=== PATIENT | female | born 1930 | race Caucasian/White ===

== ENCOUNTER 2018-04-18 11:12 | Inpatient (IN) ==
[2018-04-18] MEDS ORDERED: ONDANSETRON 4 MG/2 ML VIAL IV STA (11:54)
[2018-04-18] MEDS ORDERED: SODIUM CHLORIDE 0.9% 500 ML IV STA (11:54)
[2018-04-18 12:02] LABS: Basophils % 0.3 % (0.0-0.8); Eosinophils % 0.1 % (0.00-10.9); Hematocrit 40.8 VOL% (35.7-47.0); Hemoglobin 14.2 GM/DL (12.0-16.0); Immature Granulocytes % 0.4 %; Lymphocytes % 6.4 % (21.3-54.2); Mean Corpuscular HGB Conc 34.8 GM/DL (32-36); Mean Corpuscular Hemoglobin 31 PG (27-34); Mean Corpuscular Volume 88.1 FL (87-102); Mean Platelet Volume 12.7 FL (9.6-12.0); Monocytes % 6.4 % (1.7-12.7); Neutrophils % 86.4 % (38.7-73.9); Platelet Count 235 T/CUMM (130-400); Red Blood Count 4.63 MC/CUMM (3.8-5.5); Red Cell Distribution Width 13.7 % (9.3-17.3); White Blood Count 19.9 T/CUMM (4-12)
[2018-04-18 12:03] LABS: Basophils # 0.1 10*3/uL (0.0-0.2); Immature Granulocytes Absolute 0.08 #; Lymphocytes # 1.3 10*3/uL (1.4-4.0); Monocytes # 1.3 10*3/uL (0.11-0.8); Neutrophils # 17.2 10*3/uL (1.4-7.4)
[2018-04-18 12:24] LABS: Albumin 3.6 G/DL (3.4-5.0); Bilirubin,Total 0.6 MG/DL (0.2-1.0); Total Protein 7.3 G/DL (6.4-8.3)
[2018-04-18 12:25] LABS: Osmolality,Calculated 294.1 MOS/KG (273-304); Potassium 3.1 MMOL/L (3.5-5.1)
[2018-04-18 12:27] LABS: Calcium 5.5 MG/DL (8.5-10.1)
[2018-04-18 12:28] LABS: Lactic Acid 2.6 MMOL/L (0.4-2.0)
[2018-04-18] MEDS ORDERED: CALCIUM GLUCONATE 1,000 MG in SODIUM CHLORIDE 0.9% 100 ML IV ONE (13:28)
[2018-04-18 13:43] LABS: Apearance,Urine Slightly Hazy (Clear); Bacteria,Urine Occasional /HPF (Few); Bilirubin,Urine Negative (Negative); Blood, Urine Negative (Negative); Glucose,Urine (UA) Negative (Negative); Ketones,Urine 5 mg/dL (Negative); Mucus,Urine Occasional /LPF (Occasional); Nitrite,Urine Negative (Negative); Protein,Urine Negative; Urine Color Yellow (Yellow); Urine Urobilinogen < 2.0 EU/DL (0.2-1.0); WBC,Urine 1 /HPF (0-6)
[2018-04-18] MEDS ORDERED: SODIUM CHLORIDE 0.9% 1,000 ML IV ONE (13:43)
[2018-04-18] MEDS ORDERED: POTASSIUM CHLORIDE 20 MEQ TABLET PO STA (13:43)
[2018-04-18] MEDS ORDERED: ONDANSETRON 4 MG/2 ML VIAL IV PRN (13:58)
[2018-04-18] MEDS ORDERED: ACETAMINOPHEN 325 MG TABLET PO PRN (13:58)
[2018-04-18] MEDS ORDERED: LEVOFLOXACIN INJ 500 MG in PREMIX 1 EACH IV STA (14:00)
[2018-04-18] MEDS ORDERED: CALCIUM GLUCONATE 1,000 MG/10 ML VIAL IV ONE (14:01)
[2018-04-18] MEDS ORDERED: INFLUENZA VIRUS VACCINE 0.5 ML SYRINGE IM ONE (16:08)
[2018-04-18] MEDS ORDERED: FLUVASTATIN SODIUM 80 MG PO SCH (21:00)
[2018-04-18] MEDS: DOCUSATE SODIUM 100 MG CAPSULE PO SCH (21:20)
[2018-04-18] MEDS: CARBIDOPA/LEVODOPA 25-100 MG TABLET PO SCH (21:20)
[2018-04-19 06:18] LABS: Basophils % 0.4 % (0.0-0.8); Eosinophils # 0.1 10*3/uL (0.0-0.87); Eosinophils % 0.8 % (0.00-10.9); Hematocrit 32.4 VOL% (35.7-47.0); Hemoglobin 11.2 GM/DL (12.0-16.0); Immature Granulocytes % 0.5 %; Immature Granulocytes Absolute 0.06 #; Lymphocytes # 1.1 10*3/uL (1.4-4.0); Lymphocytes % 9.8 % (21.3-54.2); Mean Corpuscular HGB Conc 34.6 GM/DL (32-36); Mean Corpuscular Hemoglobin 31 PG (27-34); Mean Corpuscular Volume 89.3 FL (87-102); Mean Platelet Volume 13.4 FL (9.6-12.0); Monocytes # 0.7 10*3/uL (0.11-0.8); Monocytes % 6.1 % (1.7-12.7); Neutrophils % 82.4 % (38.7-73.9); Platelet Count 146 T/CUMM (130-400); Red Blood Count 3.63 MC/CUMM (3.8-5.5); Red Cell Distribution Width 13.9 % (9.3-17.3)
[2018-04-19 06:53] LABS: Alanine Aminotransferase 9 U/L (13-56); Albumin 2.6 G/DL (3.4-5.0); Alkaline Phosphatase 84 U/L (45-117); Aspartate Amino Transferase 42 U/L (0-37); Blood Urea Nitrogen 24 MG/DL (7-18); Free T4 (Free Thyroxine) 1.21 NG/DL (0.76-1.46); Glucose 93 MG/DL (74-106); Osmolality,Calculated 291.7 MOS/KG (273-304); Potassium 3.2 MMOL/L (3.5-5.1); Sodium 145 MMOL/L (136-145); Total Protein 5.5 G/DL (6.4-8.3)
[2018-04-19 06:59] LABS: Calcium < 5.0 MG/DL (8.5-10.1)
[2018-04-19] MEDS ORDERED: CALCIUM CHLORIDE 1,000 MG/10 ML SYRINGE IV ONE (07:47)
[2018-04-19] MEDS ORDERED: MAGNESIUM SULF RIDER 2 GM in PREMIX 1 EACH IV ONE (08:30)
[2018-04-19] MEDS ORDERED: CALCIUM GLUCONATE 1,000 MG in SODIUM CHLORIDE 0.9% 100 ML IV ONE (09:00)
[2018-04-19] MEDS: METOPROLOL SUCCINATE XL 50 MG TABLET PO SCH (09:30)
[2018-04-19] MEDS: CALCIUM (CARBONATE)/VITAMIN D 600 MG-400 UNIT TABLET PO SCH ×2 (09:30→21:01)
[2018-04-19] MEDS: DEXT 5% NACL 0.45% KCL 20 MEQ 20 MEQ/1,000 ML BAG IV SCH ×2 (09:31→21:03)
[2018-04-19] MEDS: MULTIVITAMIN (CENTRUM) TABLET PO SCH (09:31)
[2018-04-19] MEDS: PANTOPRAZOLE 40 MG TABLET PO SCH (09:31)
[2018-04-19] MEDS: DOCUSATE SODIUM 100 MG CAPSULE PO SCH ×2 (09:31→21:01)
[2018-04-19] MEDS: MAGNESIUM OXIDE 400 MG TABLET PO SCH (09:31)
[2018-04-19] MEDS ORDERED: FLUVASTATIN SODIUM 80 MG PO SCH (21:00)
[2018-04-19] MEDS ORDERED: FLUVASTATIN 20 MG PO SCH (21:00)
[2018-04-19] MEDS: CARBIDOPA/LEVODOPA 25-100 MG TABLET PO SCH (21:01)
[2018-04-20 05:25] LABS: Basophils % 0.4 % (0.0-0.8); Eosinophils # 0.2 10*3/uL (0.0-0.87); Eosinophils % 1.8 % (0.00-10.9); Hematocrit 36.3 VOL% (35.7-47.0); Hemoglobin 12.7 GM/DL (12.0-16.0); Immature Granulocytes % 0.8 %; Immature Granulocytes Absolute 0.09 #; Lymphocytes % 9.5 % (21.3-54.2); Mean Corpuscular Hemoglobin 31 PG (27-34); Mean Corpuscular Volume 87.1 FL (87-102); Mean Platelet Volume 13.1 FL (9.6-12.0); Monocytes # 0.7 10*3/uL (0.11-0.8); Monocytes % 6.9 % (1.7-12.7); Neutrophils # 8.6 10*3/uL (1.4-7.4); Neutrophils % 80.6 % (38.7-73.9); Platelet Count 185 T/CUMM (130-400); Red Blood Count 4.17 MC/CUMM (3.8-5.5); Red Cell Distribution Width 13.8 % (9.3-17.3); White Blood Count 10.6 T/CUMM (4-12)
[2018-04-20 05:41] LABS: Osmolality,Calculated 285.1 MOS/KG (273-304); Potassium 3.2 MMOL/L (3.5-5.1); Total Protein 6.2 G/DL (6.4-8.3)
[2018-04-20] MEDS ORDERED: MAGNESIUM SULF RIDER 2 GM in PREMIX 1 EACH IV ONE (07:35)
[2018-04-20] MEDS: DEXT 5% NACL 0.45% KCL 20 MEQ 20 MEQ/1,000 ML BAG IV SCH ×3 (08:55→20:15)
[2018-04-20] MEDS: PANTOPRAZOLE 40 MG TABLET PO SCH (08:55)
[2018-04-20] MEDS: MULTIVITAMIN (CENTRUM) TABLET PO SCH (08:55)
[2018-04-20] MEDS: MAGNESIUM OXIDE 400 MG TABLET PO SCH (08:55)
[2018-04-20] MEDS: CALCIUM (CARBONATE)/VITAMIN D 600 MG-400 UNIT TABLET PO SCH ×2 (08:56→20:46)
[2018-04-20] MEDS: DOCUSATE SODIUM 100 MG CAPSULE PO SCH ×2 (08:56→20:47)
[2018-04-20] MEDS: METOPROLOL SUCCINATE XL 50 MG TABLET PO SCH (08:56)
[2018-04-20] MEDS: QUEtiapine 25 MG TABLET PO SCH ×2 (08:58→20:47)
[2018-04-20] MEDS ORDERED: CALCIUM GLUCONATE 1,000 MG in SODIUM CHLORIDE 0.9% 100 ML IV ONE (09:00)
[2018-04-20] MEDS ORDERED: clonazePAM 0.5 MG TABLET PO PRN (13:18)
[2018-04-20] MEDS: CARBIDOPA/LEVODOPA 25-100 MG TABLET PO SCH (20:47)
[2018-04-21 05:11] LABS: Basophils % 0.5 % (0.0-0.8); Eosinophils # 0.2 10*3/uL (0.0-0.87); Eosinophils % 2.9 % (0.00-10.9); Hemoglobin 11.7 GM/DL (12.0-16.0); Immature Granulocytes % 0.8 %; Immature Granulocytes Absolute 0.06 #; Lymphocytes # 0.7 10*3/uL (1.4-4.0); Lymphocytes % 8.9 % (21.3-54.2); Mean Corpuscular HGB Conc 35.5 GM/DL (32-36); Mean Corpuscular Hemoglobin 31 PG (27-34); Mean Platelet Volume 12.3 FL (9.6-12.0); Monocytes # 0.5 10*3/uL (0.11-0.8); Monocytes % 6.5 % (1.7-12.7); Neutrophils # 6.1 10*3/uL (1.4-7.4); Neutrophils % 80.4 % (38.7-73.9); Platelet Count 171 T/CUMM (130-400); Red Blood Count 3.75 MC/CUMM (3.8-5.5); Red Cell Distribution Width 14.2 % (9.3-17.3); White Blood Count 7.5 T/CUMM (4-12)
[2018-04-21] MEDS: DEXT 5% NACL 0.45% KCL 20 MEQ 20 MEQ/1,000 ML BAG IV SCH (05:11)
[2018-04-21] MEDS ORDERED: MAGNESIUM SULF RIDER 2 GM in PREMIX 1 EACH IV ONE (09:38)
[2018-04-21] MEDS: DOCUSATE SODIUM 100 MG CAPSULE PO SCH (10:31)
[2018-04-21] MEDS: CALCIUM (CARBONATE)/VITAMIN D 600 MG-400 UNIT TABLET PO SCH (10:31)
[2018-04-21] MEDS: METOPROLOL SUCCINATE XL 50 MG TABLET PO SCH (10:31)
[2018-04-21] MEDS: MAGNESIUM OXIDE 400 MG TABLET PO SCH (10:31)
[2018-04-21] MEDS: PANTOPRAZOLE 40 MG TABLET PO SCH (10:31)
[2018-04-21] MEDS: QUEtiapine 25 MG TABLET PO SCH (10:31)
[2018-04-21] MEDS: MULTIVITAMIN (CENTRUM) TABLET PO SCH (10:33)
[2018-04-21 16:34] VITALS: BP 154/88
== END 2018-04-21 16:50 | disposition left against medical advice (07) | DRG 683 ==
LOC: N.ED 11:12 → N.EDINP 13:56 → N.2E 15:56
PROVIDERS: ADMIT Family Medicine; ATTEND Family Medicine

== ENCOUNTER 2020-07-27 10:18 | Inpatient (IN) ==
[2020-07-27 11:15] LABS: Basophils % 0.1 % (0.0-0.8); Eosinophils % 0.1 % (0.00-10.9); Hematocrit 37.5 VOL% (35.7-47.0); Hemoglobin 13.1 GM/DL (12.0-16.0); Immature Granulocytes % 0.5 %; Immature Granulocytes Absolute 0.05 #; Lymphocytes # 0.6 10*3/uL (1.4-4.0); Lymphocytes % 5.8 % (21.3-54.2); Mean Corpuscular HGB Conc 34.9 GM/DL (32-36); Mean Corpuscular Volume 87.6 FL (87-102); Mean Platelet Volume 12.2 FL (9.6-12.0); Monocytes % 5.2 % (1.7-12.7); Neutrophils % 88.3 % (38.7-73.9); Platelet Count 240 T/CUMM (130-400); Red Blood Count 4.28 MC/CUMM (3.8-5.5); Red Cell Distribution Width 13.1 % (9.3-17.3); White Blood Count 9.9 T/CUMM (4-12)
[2020-07-27 11:24] LABS: INR 1.3; PT Patient Result 13.4 SECS (9.8-11.9)
[2020-07-27 11:50] LABS: Albumin 2.5 G/DL (3.4-5.0); Bilirubin,Total 0.7 MG/DL (0.2-1.0); Calcium 8.5 MG/DL (8.5-10.1); Osmolality,Calculated 280.7 MOS/KG (273-304); Total Protein 6.5 G/DL (6.4-8.3)
[2020-07-27 11:51] LABS: Potassium 2.4 MMOL/L (3.5-5.1)
[2020-07-27 11:58] LABS: Bilirubin,Urine Negative (Negative); Blood, Urine Negative (Negative); Glucose,Urine (UA) Negative (Negative); Ketones,Urine Negative (Negative); Nitrite,Urine Negative (Negative); Protein,Urine 30 MG/DL; Urine Appearance Clear (Clear); Urine Color Yellow (Yellow); Urine Urobilinogen 0.2 EU/DL (0.2-1.0)
[2020-07-27] MEDS ORDERED: AZITHROMYCIN INJ 500 MG in SODIUM CHLORIDE 0.9% 250 ML IV STA (12:39)
[2020-07-27] MEDS ORDERED: cefTRIAXone 1,000 MG in SODIUM CHLORIDE 0.9% 100 ML IV STA (12:39)
[2020-07-27] MEDS ORDERED: POTASSIUM CHLORIDE 20 MEQ TABLET PO STA (12:44)
[2020-07-27] MEDS: SODIUM CHLOR 0.9% KCL 20 MEQ 20 MEQ/1,000 ML BAG IV SCH ×2 (14:30→22:29)
[2020-07-27] MEDS ORDERED: ACETAMINOPHEN 325 MG TABLET PO PRN (17:03)
[2020-07-27] MEDS ORDERED: ONDANSETRON 4 MG/2 ML VIAL IV PRN (17:03)
[2020-07-27] MEDS ORDERED: POTASSIUM CHLORIDE RIDER 10 MEQ in PREMIX 1 EACH IV SCH (17:30)
[2020-07-27 18:07] LABS: Ferritin 541.6 ng/ml (8-252)
[2020-07-27] MEDS ORDERED: DILTIAZEM 50 MG/10 ML VIAL IV ONE (18:22)
[2020-07-27] MEDS: dilTIAZem INJ 125 MG in SODIUM CHLORIDE 0.9% 125 MG/100 ML BAG IV SCH (18:45)
[2020-07-27] MEDS: POTASSIUM CHLORIDE RIDER 10 MEQ in PREMIX 1 EACH IV SCH ×3 (18:45→22:28)
[2020-07-27] MEDS: CARBIDOPA/LEVODOPA 25-100 MG TABLET PO SCH (20:45)
[2020-07-27] MEDS: DOCUSATE SODIUM 100 MG CAPSULE PO SCH (20:45)
[2020-07-27] MEDS: ASPIRIN EC 81 MG TABLET PO SCH (20:45)
[2020-07-27] MEDS: APIXABAN 2.5 MG TABLET PO SCH (20:45)
[2020-07-27] MEDS ORDERED: SIMVASTATIN 20 MG TABLET PO SCH (21:00)
[2020-07-28 05:19] LABS: Basophils % 0.1 % (0.0-0.8); Eosinophils # 0.2 10*3/uL (0.0-0.87); Eosinophils % 2.2 % (0.00-10.9); Hematocrit 36.2 VOL% (35.7-47.0); Hemoglobin 11.6 GM/DL (12.0-16.0); Immature Granulocytes % 0.6 %; Immature Granulocytes Absolute 0.06 #; Lymphocytes # 0.6 10*3/uL (1.4-4.0); Lymphocytes % 6.8 % (21.3-54.2); Mean Platelet Volume 12.3 FL (9.6-12.0); Monocytes % 6.5 % (1.7-12.7); Neutrophils % 83.8 % (38.7-73.9); Platelet Count 210 T/CUMM (130-400); Red Blood Count 3.85 MC/CUMM (3.8-5.5); Red Cell Distribution Width 13.6 % (9.3-17.3); White Blood Count 9.3 T/CUMM (4-12)
[2020-07-28 05:29] LABS: Calcium 7.9 MG/DL (8.5-10.1); Osmolality,Calculated 294.6 MOS/KG (273-304); Potassium 4.2 MMOL/L (3.5-5.1)
[2020-07-28 05:52] LABS: Bilirubin,Total 0.6 MG/DL (0.2-1.0); Calcium 7.8 MG/DL (8.5-10.1); Potassium 4.5 MMOL/L (3.5-5.1); Thyroid Stimulating Hormone 0.518 uIU/ml (0.358-3.74); Total Protein 5.4 G/DL (6.4-8.3)
[2020-07-28] MEDS: SODIUM CHLOR 0.9% KCL 20 MEQ 20 MEQ/1,000 ML BAG IV SCH (06:33)
[2020-07-28] MEDS ORDERED: SODIUM CHLOR 0.9% KCL 20 MEQ 20 MEQ/1,000 ML BAG IV SCH (08:00)
[2020-07-28] MEDS ORDERED: DEXTROSE 5% NACL 0.45% 1,000 ML IV SCH (08:00)
[2020-07-28] MEDS: MAGNESIUM OXIDE 400 MG TABLET PO SCH (09:15)
[2020-07-28] MEDS: FUROSEMIDE 40 MG TABLET PO SCH (09:15)
[2020-07-28] MEDS: METOPROLOL SUCCINATE XL 25 MG TABLET PO SCH (09:15)
[2020-07-28] MEDS: APIXABAN 2.5 MG TABLET PO SCH ×2 (09:15→22:27)
[2020-07-28] MEDS: DOCUSATE SODIUM 100 MG CAPSULE PO SCH ×2 (09:15→22:27)
[2020-07-28] MEDS: CALCIUM (CARBONATE) 600 MG TABLET PO SCH (09:15)
[2020-07-28] MEDS: PANTOPRAZOLE 40 MG TABLET PO SCH (09:15)
[2020-07-28] MEDS ORDERED: MAGNESIUM SULF RIDER 2 GM in PREMIX 1 EACH IV ONE (09:29)
[2020-07-28] MEDS: DEXTROSE 5% IV SCH (11:28)
[2020-07-28] MEDS: MAGNESIUM SULF IV SCH (11:28)
[2020-07-28] MEDS: NACL 0.45% IV SCH (11:28)
[2020-07-28] MEDS: cefTRIAXone 1,000 MG in SYRINGE 1 EACH IV SCH (11:28)
[2020-07-28] MEDS: methylPREDNISolone 4 MG TABLET PO SCH ×2 (13:31→17:41)
[2020-07-28] MEDS ORDERED: HALOPERIDOL 5 MG/ML AMP IM ONE (14:10)
[2020-07-28] MEDS: AZITHROMYCIN INJ 250 MG in SODIUM CHLORIDE 0.9% 250 ML IV SCH (15:04)
[2020-07-28] MEDS: dilTIAZem INJ 125 MG in SODIUM CHLORIDE 0.9% 125 MG/100 ML BAG IV SCH (18:58)
[2020-07-28] MEDS: ASPIRIN EC 81 MG TABLET PO SCH (22:27)
[2020-07-28] MEDS: CARBIDOPA/LEVODOPA 25-100 MG TABLET PO SCH (22:27)
[2020-07-28] MEDS: methylPREDNISolone SOD SUC 40 MG/1 ML VIAL IV SCH (22:27)
[2020-07-28] MEDS ORDERED: ALBUTEROL/IPRATROPIUM 3 ML NEB RESP TX ONE (23:59)
[2020-07-29] MEDS: HALOPERIDOL 5 MG/ML AMP IM PRN ×3 (00:09→18:57)
[2020-07-29] MEDS: ALBUTEROL/IPRATROPIUM 3 ML NEB RESP TX SCH ×4 (00:30→19:15)
[2020-07-29] MEDS: BUDESONIDE 0.25 MG/2 ML NEB RESP TX SCH ×3 (00:30→19:15)
[2020-07-29] MEDS: MAGNESIUM SULF IV SCH (03:36)
[2020-07-29] MEDS: NACL 0.45% IV SCH (03:36)
[2020-07-29] MEDS: DEXTROSE 5% IV SCH (03:36)
[2020-07-29 04:15] LABS: Basophils % 0.1 % (0.0-0.8); Hemoglobin 12.5 GM/DL (12.0-16.0); Immature Granulocytes % 0.6 %; Immature Granulocytes Absolute 0.07 #; Lymphocytes # 0.3 10*3/uL (1.4-4.0); Lymphocytes % 2.7 % (21.3-54.2); Mean Corpuscular HGB Conc 34.7 GM/DL (32-36); Mean Platelet Volume 11.9 FL (9.6-12.0); Monocytes % 1.4 % (1.7-12.7); Neutrophils % 95.2 % (38.7-73.9); Platelet Count 245 T/CUMM (130-400); Red Blood Count 4.09 MC/CUMM (3.8-5.5); Red Cell Distribution Width 13.3 % (9.3-17.3); White Blood Count 12.5 T/CUMM (4-12)
[2020-07-29 04:41] LABS: Lymphocytes 1 % (20-55); Platelet Estimate Adequate; Segmented Neutrophils 98 % (50-85); Total Cells Counted 100
[2020-07-29 04:42] LABS: Hypochromasia 1+; Microcytosis 1+; Ovalocytes Slight
[2020-07-29 05:33] LABS: Albumin 2.5 G/DL (3.4-5.0); Bilirubin,Total 0.4 MG/DL (0.2-1.0); Calcium 8.1 MG/DL (8.5-10.1); Osmolality,Calculated 295.8 MOS/KG (273-304); Potassium 3.3 MMOL/L (3.5-5.1); Total Protein 6.3 G/DL (6.4-8.3)
[2020-07-29] MEDS: methylPREDNISolone 4 MG TABLET PO SCH (07:27)
[2020-07-29] MEDS: methylPREDNISolone SOD SUC 40 MG/1 ML VIAL IV SCH ×2 (07:45→15:07)
[2020-07-29] MEDS ORDERED: DEXT 5% NACL 0.45% KCL 20 MEQ 20 MEQ/1,000 ML BAG IV SCH (08:00)
[2020-07-29 08:39] LABS: ABG Base Excess -3.8 MMOL/L (-2.5-2.5); ABG HCO3 18.1 MMOL/L (20-26); ABG Oxygen Saturation 92.6 % (95-100); ABG PCO2 24.9 MM HG (35-48); ABG PH 7.479 (7.35-7.45); ABG PO2 64.7 MM HG (80-95); ABG TCO2 18.9 MMOL/L (23-27)
[2020-07-29] MEDS: FUROSEMIDE 40 MG TABLET PO SCH (09:52)
[2020-07-29] MEDS: PANTOPRAZOLE 40 MG TABLET PO SCH (09:52)
[2020-07-29] MEDS: MULTIVITAMIN (CENTRUM) TABLET PO SCH (09:52)
[2020-07-29] MEDS: APIXABAN 2.5 MG TABLET PO SCH ×2 (09:52→20:15)
[2020-07-29] MEDS: DOCUSATE SODIUM 100 MG CAPSULE PO SCH ×2 (09:52→20:15)
[2020-07-29] MEDS: MAGNESIUM OXIDE 400 MG TABLET PO SCH (09:52)
[2020-07-29] MEDS: CALCIUM (CARBONATE) 600 MG TABLET PO SCH (09:52)
[2020-07-29] MEDS: METOPROLOL SUCCINATE XL 25 MG TABLET PO SCH (09:52)
[2020-07-29] MEDS: POTASSIUM CHLORIDE 20 MEQ TABLET PO SCH (09:52)
[2020-07-29] MEDS ORDERED: ENOXAPARIN 60 MG/0.6 ML SYRINGE SUBCUT SCH (10:00)
[2020-07-29] MEDS: cefTRIAXone 1,000 MG in SYRINGE 1 EACH IV SCH (12:22)
[2020-07-29] MEDS: AZITHROMYCIN INJ 250 MG in SODIUM CHLORIDE 0.9% 250 ML IV SCH (12:57)
[2020-07-29] MEDS ORDERED: POTASSIUM CHLORIDE 20 MEQ TABLET PO ONE (16:19)
[2020-07-29] MEDS ORDERED: POTASSIUM CHLORIDE RIDER 10 MEQ in PREMIX 1 EACH IV SCH (16:30)
[2020-07-29] MEDS: FUROSEMIDE 40 MG/4 ML VIAL IV SCH (16:55)
[2020-07-29] MEDS: POTASSIUM CHLORIDE RIDER 10 MEQ in PREMIX 1 EACH IV PRN ×3 (17:50→23:39)
[2020-07-29] MEDS: dilTIAZem INJ 125 MG in SODIUM CHLORIDE 0.9% 125 MG/100 ML BAG IV SCH (17:51)
[2020-07-29] MEDS: ASPIRIN EC 81 MG TABLET PO SCH (20:15)
[2020-07-29] MEDS: CARBIDOPA/LEVODOPA 25-100 MG TABLET PO SCH (20:15)
[2020-07-30] MEDS: ALBUTEROL/IPRATROPIUM 3 ML NEB RESP TX SCH ×4 (00:33→19:00)
[2020-07-30] MEDS ORDERED: ENOXAPARIN 40 MG/0.4 ML SYRINGE SUBCUT ONE (00:57)
[2020-07-30] MEDS: MORPHINE 4 MG/1 ML VIAL IV PRN ×3 (01:50→14:41)
[2020-07-30] MEDS: POTASSIUM CHLORIDE RIDER 10 MEQ in PREMIX 1 EACH IV PRN (01:56)
[2020-07-30] MEDS: methylPREDNISolone SOD SUC 40 MG/1 ML VIAL IV SCH ×3 (01:57→14:41)
[2020-07-30 05:50] LABS: Basophils % 0.2 % (0.0-0.8); Hematocrit 35.3 VOL% (35.7-47.0); Hemoglobin 11.9 GM/DL (12.0-16.0); Immature Granulocytes % 0.7 %; Immature Granulocytes Absolute 0.12 #; Lymphocytes # 0.5 10*3/uL (1.4-4.0); Lymphocytes % 2.6 % (21.3-54.2); Mean Corpuscular HGB Conc 33.7 GM/DL (32-36); Mean Corpuscular Volume 90.5 FL (87-102); Mean Platelet Volume 12.3 FL (9.6-12.0); Monocytes % 4.7 % (1.7-12.7); Neutrophils % 91.8 % (38.7-73.9); Platelet Count 266 T/CUMM (130-400); Red Cell Distribution Width 13.8 % (9.3-17.3); White Blood Count 17.1 T/CUMM (4-12)
[2020-07-30 06:03] LABS: Calcium 8.8 MG/DL (8.5-10.1); Osmolality,Calculated 298.7 MOS/KG (273-304); Potassium 4.8 MMOL/L (3.5-5.1)
[2020-07-30 06:06] LABS: Albumin 2.3 G/DL (3.4-5.0); Bilirubin,Total 0.6 MG/DL (0.2-1.0); Calcium 8.9 MG/DL (8.5-10.1); Osmolality,Calculated 297.7 MOS/KG (273-304); Potassium 4.3 MMOL/L (3.5-5.1); Total Protein 6.3 G/DL (6.4-8.3)
[2020-07-30 06:22] LABS: Hypochromasia Slight; Lymphocytes 1 % (20-55); Microcytosis Slight; Platelet Estimate Adequate; Segmented Neutrophils 97 % (50-85); Total Cells Counted 100
[2020-07-30] MEDS: BUDESONIDE 0.25 MG/2 ML NEB RESP TX SCH ×2 (07:24→19:00)
[2020-07-30] MEDS: MULTIVITAMIN (CENTRUM) TABLET PO SCH (08:39)
[2020-07-30] MEDS: carvediloL 6.25 MG TABLET PO SCH ×2 (08:40→16:57)
[2020-07-30] MEDS: POTASSIUM CHLORIDE 20 MEQ TABLET PO SCH (08:40)
[2020-07-30] MEDS: PANTOPRAZOLE 40 MG TABLET PO SCH (08:40)
[2020-07-30] MEDS: APIXABAN 2.5 MG TABLET PO SCH (08:40)
[2020-07-30] MEDS: DOCUSATE SODIUM 100 MG CAPSULE PO SCH (08:40)
[2020-07-30] MEDS: MAGNESIUM OXIDE 400 MG TABLET PO SCH (08:40)
[2020-07-30] MEDS ORDERED: METOPROLOL TARTRATE 5 MG/5 ML VIAL IV PRN (09:13)
[2020-07-30] MEDS: FUROSEMIDE 40 MG/4 ML VIAL IV SCH (11:28)
[2020-07-30] MEDS: CALCIUM (CARBONATE) 600 MG TABLET PO SCH (11:28)
[2020-07-30] MEDS: cefTRIAXone 1,000 MG in SYRINGE 1 EACH IV SCH (12:38)
[2020-07-30] MEDS: AZITHROMYCIN INJ 250 MG in SODIUM CHLORIDE 0.9% 250 ML IV SCH (13:11)
[2020-07-30 16:51] VITALS: BP 149/80
[2020-07-31] MEDS ORDERED: ENOXAPARIN 30 MG/0.3 ML SYRINGE SUBCUT SCH (09:00)
== END 2020-07-30 18:30 | disposition expired | DRG 64 ==
LOC: EDUNIT# → EDBD → N.ED 10:18 → N.EDINP 12:35 → N.TELES 17:02
PROVIDERS: ADMIT Family Medicine; ATTEND Family Medicine